=== PATIENT | female | born 1970 | race Caucasian/White ===

== ENCOUNTER 2022-11-12 06:43 | Emergency (ER) | payer SELFPAY ==
[~2022-11-12] VITALS: Ht 149 cm; Wt 90.0 kg
[2022-11-12 07:15] LABS: BASOPHILS # (AUTO) 0.1 10^3/uL (0.0-0.1); BASOPHILS % (AUTO) 1 % (0-10); EOSINOPHILS # (AUTO) 0.1 10^3/uL (0.0-0.3); EOSINOPHILS % (AUTO) 1 % (0-10); HEMATOCRIT 43 % (35-52); HEMOGLOBIN 14.9 g/dL (11.5-16.0); LYMPHOCYTES # (AUTO) 3.4 10^3/uL (1.0-4.0); LYMPHOCYTES % (AUTO) 39 % (12-44); MEAN CORPUSCULAR HEMOGLOBIN 29 pg (25-34); MEAN CORPUSCULAR HGB CONC 35 g/dL (32-36); MEAN CORPUSCULAR VOLUME 84 fL (80-99); MEAN PLATELET VOLUME 8.9 fL (9.0-12.2); MONOCYTES # (AUTO) 0.6 10^3/uL (0.0-1.0); MONOCYTES % (AUTO) 6 % (0-12); NEUTROPHILS # (AUTO) 4.5 10^3/uL (1.8-7.8); NEUTROPHILS % (AUTO) 52 % (42-75); PLATELET COUNT 267 10^3/uL (130-400); WHITE BLOOD COUNT 8.7 10^3/uL (4.3-11.0)
[2022-11-12] MEDS ORDERED: ASPIRIN 81 MG CHEW (CHILDREN'S ASA) PO ONE (07:15)
[2022-11-12] MEDS ORDERED: KETOROLAC 30 MG/ML VIAL IVP ONE (07:15)
--- NOTE | 2022-11-12 07:17 | ED Chest Pain ---
General Chief Complaint: Chest Pain Stated Complaint: CP Nursing Triage Note: ARRIVED VIA AMB TO ROOM 05 WITH CHEST PAIN STARTING ON SUNDAY. Source: patient Exam Limitations: no limitations History of Present Illness Date Seen by Provider: Nov 12, 2022 Time Seen by Provider: 06:56 Initial Comments This 52-year-old woman presents to the emergency room with complaints of left- sided chest pain. She has had the pain intermittently for the past 3 days. She got called into work at midnight and developed chest pain after arriving to work. The past 2 days pain has been relieved with aspirin. She did not have access to aspirin this morning. She describes no associated symptoms such as nausea, shortness of breath, sweats, etc. 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 She notes increased discomfort with deep breathing. She has no known history of coronary artery disease. She does smoke and is obese. Left chest is tender to palpation and hurts with flexion of the pectoralis muscles. She also has tenderness in th e epigastrium and left upper quadrant. She has history of von Willebrand's disease. She presently rates her pain as 3 or 4 out of 10. Her primary care is at [facility]. She is reportedly of childbearing capacity and is late on her menstrual cycle. Her episode of pain this morning started at about 0500. Allergies and Home Medications Allergies Coded Allergies: No Known Drug Allergies (Unverified , 11/12/22) Patient Home Medication List Home Medication List Reviewed: Yes Review of Systems Review of Systems Constitutional: no symptoms reported EENTM: No Symptoms Reported Respiratory: See HPI Cardiovascular: See HPI Gastrointestinal: See HPI Genitourinary: No Symptoms Reported Musculoskeletal: see HPI Skin: no symptoms reported Psychiatric/Neurological: No Symptoms Reported Endocrine: No Symptoms Reported Hematologic/Lymphatic: No Symptoms Reported Past Qgqlcxz-Fldiqw-Hikyac Hx Patient Social History Tobacco Use?: Yes Tobacco type used: Cigarettes Substance use?: No Alcohol Use?: No Past Medical History Surgeries: Yes Abdominal (Laparoscopic for endometriosis) Respiratory: No Cardiac: No Neurological: No : No Reproductive Disorders: Yes Female Reproductive Disorders: Endometriosis Genitourinary: No Gastrointestinal: No Musculoskeletal: Yes (chronic generalized aches and pains) Endocrine: No HEENT: No Cancer: No Psychosocial: No Integumentary: No Blood Disorders: Yes (Von Willebrand's) Physical Exam Vital Signs Vital Signs - First Documented 11/12/22 06:55 Temp 36.3 Pulse 84 Resp 16 B/P (MAP) 141/90 (107) Pulse Ox 98 O2 Delivery Room Air Capillary Refill : Less Than 3 Seconds Height, Weight, BMI Height: '" Weight: lbs. oz. kg; 40.00 BMI Method: General Appearance: No Apparent Distress, WD/WN, Obese HEENT: PERRL/EOMI, Normal ENT Inspection Neck: Normal Inspection; No JVD Respiratory: Lungs Clear, Normal Breath Sounds, No Accessory Muscle Use, No Respiratory Distress, Other (Left upper chest tender to palpation. Increased pain with flexion of pectoralis muscles) Cardiovascular: Regular Rate, Rhythm, No Edema, No Murmur Gastrointestinal: Normal Bowel Sounds, Soft; No Distended; Tenderness (Mild in the epigastrium and left upper quadrant) Extremity: Normal Inspection, No Pedal Edema, Other (Mild tenderness in the right calf) Neurologic/Psychiatric: Alert, Oriented x3, No Motor/Sensory Deficits, Normal Mood/Affect Skin: Normal Color, Warm/Dry Progress/Results/Core Measures Results/Orders Lab Results Laboratory Tests Test 11/12/22 07:03 11/12/22 09:03 Range/Units White Blood Count 8.7 4.3-11.0 10^3/uL Red Blood Count 5.08 3.80-5.11 10^6/uL Hemoglobin 14.9 11.5-16.0 g/dL Hematocrit 43 35-52 % Mean Corpuscular Volume 84 80-99 fL Mean Corpuscular Hemoglobin 29 25-34 pg Mean Corpuscular Hemoglobin Concent 35 32-36 g/dL Red Cell Distribution Width 12.5 10.0-14.5 % Platelet Count 267 130-400 10^3/uL Mean Platelet Volume 8.9 L 9.0-12.2 fL Immature Granulocyte % (Auto) 1 % Neutrophils (%) (Auto) 52 42-75 % Lymphocytes (%) (Auto) 39 12-44 % Monocytes (%) (Auto) 6 0-12 % Eosinophils (%) (Auto) 1 0-10 % Basophils (%) (Auto) 1 0-10 % Neutrophils # (Auto) 4.5 1.8-7.8 10^3/uL Lymphocytes # (Auto) 3.4 1.0-4.0 10^3/uL Monocytes # (Auto) 0.6 0.0-1.0 10^3/uL Eosinophils # (Auto) 0.1 0.0-0.3 10^3/uL Basophils # (Auto) 0.1 0.0-0.1 10^3/uL Immature Granulocyte # (Auto) 0.0 0.0-0.1 10^3/uL Prothrombin Time 12.5 12.2-14.7 SEC INR Comment 0.9 0.8-1.4 Activated Partial Thromboplast Time 34 24-35 SEC D-Dimer 0.36 0.00-0.49 UG/ML Sodium Level 140 135-145 MMOL/L Potassium Level 3.9 3.6-5.0 MMOL/L Chloride Level 107 98-107 MMOL/L Carbon Dioxide Level 20 L 21-32 MMOL/L Anion Gap 13 5-14 MMOL/L Blood Urea Nitrogen 15 7-18 MG/DL Creatinine 0.68 0.60-1.30 MG/DL Estimat Glomerular Filtration Rate 106 BUN/Creatinine Ratio 22 Glucose Level 149 H 70-105 MG/DL Calcium Level 9.6 8.5-10.1 MG/DL Corrected Calcium 9.3 8.5-10.1 MG/DL Magnesium Level 1.9 1.6-2.4 MG/DL Total Bilirubin 0.4 0.1-1.0 MG/DL Aspartate Amino Transf (AST/SGOT) 25 5-34 U/L Alanine Aminotransferase (ALT/SGPT) 30 0-55 U/L Alkaline Phosphatase 93 40-136 U/L Myoglobin 45.1 10.0-92.0 NG/ML Troponin I < 0.028 < 0.028 <0.028 NG/ML Total Protein 7.5 6.4-8.2 GM/DL Albumin 4.4 3.2-4.5 GM/DL Lipase 95 H 8-78 U/L Serum Test, Qualitative NEGATIVE NEGATIVE My Orders Orders - BALBINA HERRERA MD Ekg Tracing (11/12/22 06:56) Cbc With Automated Diff (11/12/22 07:07) Magnesium (11/12/22 07:07) Chest 1 View, Ap/Pa Only (11/12/22 07:07) Comprehensive Metabolic Panel (11/12/22 07:07) Myoglobin Serum (11/12/22 07:07) Protime With Inr (11/12/22 07:07) Partial Thromboplastin Time (11/12/22 07:07) O2 (11/12/22 07:07) Monitor-Rhythm Ecg Trace Only (11/12/22 07:07) Lipid Panel (11/13/22 06:00) Ed Iv/Invasive Line Start (11/12/22 07:07) Lipase (11/12/22 07:07) Troponin I Jamarcus (11/12/22 07:07) Fibrin Degradation Products (11/12/22 07:07) Hcg,Qualitative Serum (11/12/22 07:08) Aspirin Chewable Tablet (Baby Aspirin Ch (11/12/22 07:15) Ketorolac Injection (Toradol Injection) (11/12/22 07:15) Troponin I Jamarcus (11/12/22 09:05) Medications Given in ED Current Medications Medications Dose Ordered Sig/Gaye Route Start Time Stop Time Status Last Admin Dose Admin Aspirin 324 mg ONCE ONCE PO 11/12/22 07:15 11/12/22 07:16 DC 11/12/22 07:15 324 MG Ketorolac Tromethamine 30 mg ONCE ONCE IVP 11/12/22 07:15 11/12/22 07:16 DC 11/12/22 07:16 30 MG Vital Signs/I&O 11/12/22 06:55 Temp 36.3 Pulse 84 Resp 16 B/P (MAP) 141/90 (107) Pulse Ox 98 O2 Delivery Room Air Blood Pressure Mean: 107 Progress Progress Note #1: Time: 07:20 Progress Note Patient was interviewed and examined. EKG was obtained and interpreted by me. There were no ischemic changes or arrhythmias. Labs are being obtained. Since patient has features of musculoskeletal pain, Toradol is being administered. Aspirin is also being administered since she has not had any today. Disposition will be determined after review of labs, chest x-ray, and response to treatment. Progress Note #2: Time: 09:49 Progress Note Chest pain panel was unremarkable including CBC, CMP, troponin, repeat troponin, myoglobin, and magnesium. Lipase was minimally elevated suggesting some minimal pancreatic inflammation. Lab studies were reviewed by me in their entirety and interpreted by me. Toradol and aspirin resolved her chest pain and left upper quadrant pain. D-dimer was negative effectively ruling out pulmonary embolus. Patient is now anxious to be discharged. I reviewed discharge instructions with her and stressed the importance of follow-up. See discharge instructions for further discussion. Initial ECG Impression Date: Nov 12, 2022 Initial ECG Impression Time: 06:59 Initial ECG Rate: 81 Initial ECG Rhythm: Normal Sinus Initial ECG Intervals: Normal Initial ECG Impression: Normal Comment Normal sinus rhythm with no ST elevation or depression of diagnostic criteria. No abnormal intervals or axis deviation. Diagnostic Imaging Diagonstic Imaging: Xray Plain Films/CT/US/NM/MRI: chest Comments Chest x-ray was viewed by me. There were no acute abnormalities appreciated by my interpretation of this 1 view film. Radiologist report was reviewed as below: NAME: SHEILA MONROE [facility] REC#: [id number] PT STATUS: REG ER : 1970 PHYSICIAN: BALBINA HERRERA MD ADMIT DATE: 11/12/22/ER Signed Date of Exam:11/12/22 CHEST 1 VIEW, AP/PA ONLY EXAMINATION: Chest, 1 view. HISTORY: Chest pain. COMPARISON: None available. FINDINGS: Heart size and pulmonary vasculature are normal. The lungs are clear without consolidation, pleural effusion, or pneumothorax. Degenerative changes of the thoracic spine. Osseous structures are otherwise intact. IMPRESSION: No acute radiographic abnormality in the chest. Dictated by: Dictated on workstation # [id number] Dict: 11/12/22 0738 Trans: 11/12/22 0743 [id number] Interpreted by: AL BLACK DO Electronically signed by: AL BLACK DO 11/12/22 0743 Departure Impression Primary Impression: Chest pain Qualified Codes: R07.9 - Chest pain, unspecified Additional Impression: Left upper quadrant pain Disposition: 01 HOME, SELF-CARE Condition: Improved Departure-Patient Inst. Decision time for Depature: 09:50 Referrals: [facility] [place] Primary Care Physician Add. Discharge Instructions: Please schedule follow-up appointment with your primary care office as soon as possible. Repeat examination and repeat of your labs, especially lipase (pancreas enzyme) should be repeated within the next week. Please communicate this tomorrow when you call to make the appointment. For your pain use primarily Tylenol (acetaminophen) up to 1000 mg every 6 hours as needed. You may also use topical preparations [id number] such as lidocaine rubs or patches. Your left upper abdominal pain may be related to inflammation of your pancreas as your lipase (pancreas enzyme) was elevated. To rest your pancreas, adhere to a clear liquid diet for the remainder of today. Then gradually advance your diet with small quantities of bland food as tolerated. Work toward quitting smoking as rapidly as possible. Seek assistance from your primary care provider if needed or desired. Take an antiacid medication such as Pepcid (famotidine) 20 mg twice daily or Prilosec (omeprazole) 20 mg daily. These medications may be purchased [id number]. Use them consistently for the next couple of weeks and then as needed. If you choose to take NSAID anti-inflammatory medications such as ibuprofen, naproxen, Aleve, etc. you should continue taking the antacid medication. Use NSAID medications such as ibuprofen, Motrin, Advil, Aleve, naproxen, etc. sparingly as they may irritate your stomach. Return to the emergency room if you have worsening symptoms despite following these instructions. All discharge instructions reviewed with patient and/or family. Voiced understanding. Work/School Note: Work Release Form Date Seen in the Emergency Department: Nov 12, 2022 Return to Work: November 13, 2022 Copy Copies To 1: [facility]/BALBINA GOEL MD Nov 12, 2022 07:16
[2022-11-12 07:34] LABS: ALBUMIN 4.4 GM/DL (3.2-4.5); POTASSIUM 3.9 MMOL/L (3.6-5.0)
[2022-11-12 07:36] LABS: CALCIUM 9.6 MG/DL (8.5-10.1); INR 0.9 (0.8-1.4); PROTHROMBIN TIME PATIENT 12.5 SEC (12.2-14.7)
[2022-11-12 07:37] LABS: TOTAL PROTEIN 7.5 GM/DL (6.4-8.2)
[2022-11-12 07:39] LABS: BILIRUBIN,TOTAL 0.4 MG/DL (0.1-1.0)
[2022-11-12 07:40] LABS: CREATININE SERUM 0.68 MG/DL (0.60-1.30)
--- NOTE | 2022-11-12 07:40 | Diagnostic Imaging Report ---
EXAMINATION: Chest, 1 view. HISTORY: Chest pain. COMPARISON: None available. FINDINGS: Heart size and pulmonary vasculature are normal. The lungs are clear without consolidation, pleural effusion, or pneumothorax. Degenerative changes of the thoracic spine. Osseous structures are otherwise intact. IMPRESSION: No acute radiographic abnormality in the chest. Dictated by: Dictated on workstation # [id number]
[2022-11-12 07:43] LABS: MAGNESIUM 1.9 MG/DL (1.6-2.4)
[2022-11-12 10:03] VITALS: BP 129/76
== END 2022-11-12 10:03 | disposition home or self-care (01) ==
LOC: EDUNIT# 06:43 → ER 06:51
DX: R07.89 Other chest pain (principal); R10.12 Left upper quadrant pain; R74.8 Abnormal levels of other serum enzymes; R10.13 Epigastric pain; E66.9 Obesity, unspecified; F17.210 Nicotine dependence, cigarettes, uncomplicated; Z68.41 Body mass index [BMI] 40.0-44.9, adult; Z28.310 Unvaccinated for COVID-19
CPT/HCPCS: 36415; 71045; 80053; 83690; 83735; 83874; 84484; 84703; 85025; 85379; 85610; 85730; 93005; 93041